=== PATIENT | female | born 1965 | race Caucasian/White ===

== ENCOUNTER 2025-01-25 17:53 | Emergency (ER) | payer SELFPAY ==
[~2025-01-25] VITALS: Ht 165.1 cm; Wt 902.0 kg
[2025-01-25 18:08] VITALS: O2SAT 99
[2025-01-25] MEDS ORDERED: ONDA-241 MT (21:02)
[2025-01-25 23:00] VITALS: BP 152/63; PULSE 57; RESP 18; TEMP 36.7; O2SAT 96
== END 2025-01-25 23:00 | disposition home or self-care (01) ==
LOC: ER 17:53
DX: R07.9 Chest pain, unspecified (principal); R11.10 Vomiting, unspecified; E11.9 Type 2 diabetes mellitus without complications; E78.00 Pure hypercholesterolemia, unspecified; F03.90 Unspecified dementia, unspecified severity, without behavioral disturbance, psychotic disturbance, mood disturbance, and anxiety; I10 Essential (primary) hypertension; Z79.899 Other long term (current) drug therapy; Z20.822 Contact with and (suspected) exposure to COVID-19
CPT/HCPCS: 71045; 87426; 93005; 99285